=== PATIENT | male | born 1950 | race Caucasian/White ===

== ENCOUNTER → 2017-01-30 | Outpatient (CLI) | payer MEDICARE, OTHER ==
[~2017-01-30] MED LIST: AMLODIPINE-BEN1 EAC5 PO; BENAZEPRIL HCL; BENICAR HCT 401 EAC1 PO; BETAPACE (GENER80 MG PO; LIPITOR40 MG PO; XARELTO20 MG PO; [UNRECOGNIZED DRUG - CODE] PO; [UNRECOGNIZED DRUG - OTHER] PO
--- NOTE | ~2017-01-30 | ESTC ---
Cardiac Perfusion Imaging Demographics Patient Name MALU Warner Gender Male Patient Number [id number] Race Visit Number [id number] Ethnicity Corporate ID Room Number Accession Number [id number] Height 73 inches Date of 1950 Weight 237 pounds Olive VASQUEZ Interpreting Laney Arreaga Date of study 01/30/2017 Physician Supervising /JAGP Andressa Negron NM Technologist Leti Schaefer MD Ordering Physician Stress missile technician Stress ECG Reading Andressa Ngeron Nurse Corey Sharif RN Physician Olvie VASQUEZ The procedure was explained in detail to the patient. Risks, complications and alternative treatments were reviewed. Written consent was obtained. Medications Reviewed with Patient prior to Procedure. Procedure Admit Source:Other. Procedure Type: Nuclear Stress Test:Pharmacological, Lexiscan, Cardiolite Stress Test Procedure Start time: 01/30/2017 00:00 End time: 01/30/2017 08:20 Indications: Shortness of breath. Risk Factors The patient risk factors include:former tobacco use. Conclusions Impression ECG portion of the lexiscan stress test is clinically negative for ischemia by diagnostic criteria. Myocardial perfusion imaging is moderately abnormal. The images reveal a mostly fixed defect in the entire inferior wall basal lateral consistent with infarct . Overall left ventricular systolic function was normal. Calculated LVEF is 65% and TID ratio is 1.11. This is a intermediate risk stress test. There are no previous studies for comparison . Stress Protocols Resting ECG A fib, rare PVCs Pre-stress physical exam: Patient assessed by Dr Crisostomo prior to testing. Stress Protocol:Pharmacologic Predicted HR: 152 bpm ECG Findings No ECG changes suggestive of ischemia. Arrhythmias No new rhythm abnormality. Symptoms Headache. Chest tightness. Shortness of breath. Stress Interpretation Appropriate hemodynamic response to Lexiscan. No significant ST-T wave changes with Lexiscan. ECG portion is negative for ischemia by diagnostic criteria. Imaging Results Summed scores - Summed stress score: 10 - Summed rest score: 9 - Summed difference score: 1 Stress ejection Ejection fraction:64 % EDV :106 ml ESV :38 ml Stroke volume :68 ml LV mass :131 gr Imaging Protocols Rest Stress Isotope:Tc99m Sestamibi IV Isotope: Tc99m Sestamibi IV Isotope dose:14.8 mCi Isotope dose:44.2 mCi Date:01/30/2017 07:17 Date:01/30/2017 08:47 Technique: SPECT Technique: Gated Supine SPECT Supine Scan Time:45-60 minutes post Scan Time:45-60 minutes post injection injection Procedure Medications - Regadenoson (Lexiscan) 0.4 mg IV over 10-15 sec. I.V. 0.4 mg. Medications administered per verbal order and read back to physician prior to administration. Medical History Admission Data Admission date: 01/30/2017 Admission Time: 06:58 Hospital Status: Outpatient. Signatures dtt: LONA BEAULIEU dtd: 01/30/17 [facility] Physician Self Edit
== END | disposition disaster alternative care site (69) ==
LOC: GRAD 06:58
DX: I48.91 Unspecified atrial fibrillation (principal); R06.02 Shortness of breath; Z87.891 Personal history of nicotine dependence
CPT/HCPCS: A9500; J2785

== ENCOUNTER → 2017-02-07 | Day surgery (SDC) | payer MEDICARE, OTHER ==
[~2017-02-07] VITALS: Ht 185.4 cm; Wt 101.7 kg
--- NOTE | ~2017-02-07 | OR ---
PATIENT'S NAME: LORENA TORIBIO [facility] AGE: 66 Y [address] ROOM: [place] [id number] LOCATION: [facility] [place] ADMIT DATE: 02/07/2017 OR/Procedure Report DISCHARGE DATE: FAMILY PHYSICIAN: Rashid Marte MD ATTENDING PHYSICIAN: Rebecca Crisostomo SURGEON: Rebecca Crisostomo MD SECOND LANGUAGE TUTOR: DATE OF PROCEDURE: 02/07/2017 PROCEDURE PERFORMED: Synchronized cardioversion. INDICATION: The patient is 66-year-old gentleman with hypertension, newly discovered atrial fibrillation. He has been placed on anticoagulation with rivaroxaban. DESCRIPTION OF PROCEDURE: He was brought in to the procedural unit in fasting state. Transesophageal echocardiogram showed there were no masses in the atria compatible with thrombus. The patient was deeply sedated with propofol. I then delivered a single synchronized biphasic 200 joule shock with patches in the anterior/posterior configuration. The patient promptly converted from atrial fibrillation to sinus rhythm. CONCLUSION: Successful cardioversion from atrial fibrillation to sinus rhythm. REBECCA CRISOSTOMO MD PE/modl /[id number] d: 02/07/17 1151 t: 02/12/17 0820, OPERATIVE SUMMARY
--- NOTE | ~2017-02-07 | ECHO ---
Transesophageal Echocardiography Report ([facility]ELSE[facility]) Demographics Patient Name LORENA TORIBIO Date of Study 02/07/2017 Patient Number [id number] Visit Number [id number] Date of 1950 Room Number Gender Male Number Age 66 year(s) Referring Estuardo Mike Donations Attendant Griffin Delaney RVT, Physician RD Physician Interpreting Andressa Negron Plasterer Journeyman Physician A Supervising Ordering Andressa Negron MD/MLP Physician A Nurse Stress Supervisor Roving Conclusions Summary The left ventricle is normal in size . Estimated EF: 60-65 %. The left atrium is mildly dilated. Proceed with cardioversion. No left atrial masses including the appendage. Procedure Type of Study [facility]ELSE[facility] procedure:Color Doppler. Procedure Date Date: 02/07/2017 Start: 09:30 AM Study Location: Inpatient Portable Technical Quality: Adequate visualization Indications:Atrial fibrillation. Appropriate Use Criteria: 8 Patient Status: Routine Rhythm: Atrial fibrillation HR: 93 bpm BP: 124/67 mmHg KELSEY Performed By: the attending and the automatic clipper and stripper Findings Left Ventricle The left ventricle is normal in size . Estimated EF: 60-65 %. Right Ventricle Normal right ventricular size and function. Left Atrium The left atrium is mildly dilated. No left atrial masses including the appendage. Right Atrium The right atrium is not dilated. No evidence of patent foramen ovale by Doppler. Mitral Valve Trivial mitral regurgitation. Aortic Valve Normal trileaflet aortic valve. Tricuspid Valve Trivial tricuspid regurgitation . Pulmonic Valve Trivial pulmonic valve regurgitation. Pericardial Effusion No pericardial effusion. Signature dtt: Rebecca Crisostomo dtd: 02/07/17 0930 Physician Self Edit
== END ==
LOC: GOPD 02-01 → GSDC 07:51 → GOPD 08:00 → EDSTATUS 08:00
DX: I48.91 Unspecified atrial fibrillation (principal); I10 Essential (primary) hypertension; M19.90 Unspecified osteoarthritis, unspecified site; F17.210 Nicotine dependence, cigarettes, uncomplicated; E78.5 Hyperlipidemia, unspecified; Z98.890 Other specified postprocedural states; Z79.01 Long term (current) use of anticoagulants; Z79.899 Other long term (current) drug therapy
CPT/HCPCS: J2001; J7030

== ENCOUNTER 2017-02-12 06:58 | Inpatient (IN) | payer MEDICARE, OTHER ==
[~2017-02-12] VITALS: Ht 185.4 cm; Wt 102.3 kg
--- NOTE | ~2017-02-12 | CATH ---
Cardiac Diagnostic Report Demographics Patient Name MALU Warner Gender Male Date of 1950 Age 66 year(s) Patient Number [id number] Date of Study 02/12/2017 Visit Number [id number] Room Number [id number] [place] [id number] Ht 185.42 cm Wt 100.6 kg Referring sEtuardo Mike Primary Physician Physician Performing Efstratiou Secondary Physician Physician Jamil Schaefer MD Diagnostic Efstratiou Assisting Physician Physician Jamil Schaefer MD Interventional Physician Mini Baccarat Dealer Physician Findings and Conclusions Diagnostic Findings and Conclusion Diffuse mild to moderate coronary artery disease. 25% LAD - 60% Diag - 25% RCA - 30% Circ Diagnostic Recommendations Medical treatment. Start sotalol for recurrent atrial fibrillation. Procedure Description The patient was brought to the diagnostic cardiac catheterization-EP laboratory in the fasting, non-sedated state. Informed consent was obtained in the written and verbal form after the risks and benefits were explained. The patient had no further questions and agreed to proceed. The planned puncture-incision site(s) were shaved and prepped with ChloraPrep and draped in the usual sterile manner. Conscious sedation pain control medications were delivered by a registered nurse under physician guidance. Surface ECG rhythm, blood pressure measurement, and pulse oximetry were monitored throughout the procedure. Arterial access. The access site was infiltrated with lidocaine. The vessel was entered with the Seldinger technique. A sheath was advanced into the vessel and used for catheter placement. Selective left coronary angiography. A catheter was advanced into the left coronary vessel ostium under Fluoroscopic guidance. Contrast was injected by hand. Images were obtained in multiple projections. Selective right coronary angiography. A catheter was advanced into the right coronary vessel ostium under fluoroscopic guidance. Contrast was injected by hand. Images were obtained in multiple projections. Left heart catheterization with ventriculography. A catheter was advanced across the aortic valve to the left ventricle under fluoroscopic guidance. Resting hemodynamics were obtained. With the catheter at the left ventricular apex, contrast was injected. Images were obtained in IRENE projections. Post-ventriculography LV pressure was obtained. The catheter was gradually withdrawn into the aorta with continuous pressure recording. Arterial artery hemostasis was achieved. The patient was transferred to a regular nursing floor via cart accompanied by a nurse. The patient left the laboratory in stable condition. Diagnostic Cath Status: Urgent Procedure Procedure Type Diagnostic procedure:Ventriculogram:, Left, Angiography:, Coronary Angios w/LHC Indications: Abnormal Stress Test and Atrial fibrillation. The procedure was explained in detail to the patient. Risks, complications and alternative treatments were reviewed. Written consent was obtained. Medications Reviewed with Patient prior to Procedure. Angiographic Findings Dominance: Right Cardiac Arteries and Lesion Findings LMCA: Short, patent. LAD: Lesion on Prox LAD: Proximal subsection.25% stenosis . Lesion on 1st Diag: Ostial.60% stenosis . LCx: OM 1 small. OM 2 large, patent. Lesion on Mid CX: Mid subsection.30% stenosis . Lesion on 1st Ob Stephanie: Mid subsection.80% stenosis . RCA: Lesion on Mid RCA: Mid subsection.25% stenosis . Lesion on 1st RPL: Proximal subsection.20% stenosis . Lesion on R PDA: Proximal subsection.20% stenosis . Coronary Tree Procedure Data Procedure Date Date: 02/12/2017Start: 09:29 AMEnd: 09:59 AM Entry Locations - Retrograde Percutaneous access was performed through the Right Radial artery (Primary location). A 6 Fr sheath was inserted. Hemostasis was successfully obtained using Mechanical Compression. Closure Comments: 14 ml of air in R. band by Roxanna Wagoner. . Procedure Medications Order and Administration + + +-------+---------+ !Time !Medication !Dosage !Route ! + + +-------+---------+ !02/12/2017 !Versed !1 mg !I.V. ! !09:28 AM ! ! ! ! + + +-------+---------+ !02/12/2017 !Fentanyl !50 mcg !I.V. ! !09:29 AM ! ! ! ! + + +-------+---------+ !02/12/2017 !PAE Radial Cocktail: Heparin 5000 units, ! !I.A. ! !09:32 AM !Nitroglycerin 200mcg, Verapamil 3 mg ! ! ! ! !(ACC_3) ! ! ! + + +-------+---------+ !02/12/2017 !0.9% NaCl !300 ml !I.V. ! !09:35 AM ! ! !bolus ! + + +-------+---------+ !02/12/2017 !Herbert-Synephrine (Phenylephrine) !100 mcg!I.V. ! !09:38 AM ! ! ! ! + + +-------+---------+ Devices Used - A6 Fr. BS JR 4 Diag. Catheterwas used for:Right coronary angiography. - A6 Fr. BS JL 3.5 Diag. Catheterwas used for:Left coronary angiography. - A6 Fr. BS Angled Pigtail Diag. Catheterwas used for:Left ventriculography. Contrast Material - Isovue 50794 ml Fluoroscopy Time: Diagnostic: 3:00 minutes. Total: 3:00 minutes. Fluoroscopy Dose: Diagnostic: 814 mGy. Total: 814 mGy. Estimated Blood Loss: 10 ml. Medical History Performed Procedures and Imaging Results - Echocardiographywas performed on 02/07/2017.(65% ). - Stress testing with SPECT MPIwas performed on 02/07/2017. Results were: Positive. Risk/Extent of ischemia was: Intermediate risk. Allergies - No known allergies. Risk Factors The patient risk factors include:treated hypercholesterolemia, treated hypertension, last creatinine: 1.1 mg/dl, creatinine clearance: 91.45 ml/min and Current/Recent(w/in 1 year) tobacco use. Admission Data Admission Date: 02/12/2017 Admission Time: 06:58 AM Insurance Payors: Medicare. Admission Medications + +------+------+ + + + + !Medication !Dosage!Times !Last !Last !Administered !Comments ! ! ! !Per !Delivery !Delivery ! ! ! ! ! !Day !Date !Time ! ! ! + +------+------+ + + + + !Aspirin ! ! ! ! ! ! ! !(any) ! ! ! ! ! ! ! + +------+------+ + + + + !DEEPIKA ! ! ! ! ! ! ! !Inhibitor ! ! ! ! ! ! ! !(any) ! ! ! ! ! ! ! + +------+------+ + + + + !Statin (any)! ! ! ! ! ! ! + +------+------+ + + + + !ARB (any) ! ! ! ! ! ! ! + +------+------+ + + + + Clinical Evaluation Leading to Procedure - The patient's CAD presentation was assessed as: Unstable angina. - The patient's anginal syndrome during the past two weeks was assessed as: Class II according to the [place] Cardiovascular [employer] Classification System (CCS). Anti-anginal medications were prescribed during the past two weeks. The medication is: Ca channel Blockers. VA Ventriculography Findings Normal. LVEF 70%. No regional wall motion abnormalities. LV function assessed as:Normal. Ejection Fraction - 02/12/2017 - Method: LV gram. EF%: 70. LVA Segment Contractility 1 - Normal 3 - Mild 5 - Severe 7 - Dyskinesis hypokinesis hypokinesis 2 - 4 - Moderate 6 - Akinesis 8 - Aneurysm Hypokinesis hypokinesis Snapshots Hemodynamics Condition: Rest O2 Consumption: Estimated: 274.00Heart Rate: 85 bpm Pressures (mmHg) +-----+ + !Site !Pressure ! +-----+ + !LV !112/2 ,4 ! +-----+ + !LV !106/4 ,5 ! +-----+ + !AO !96/62 (79) ! +-----+ + !LV !118/4 ,4 ! +-----+ + !AO !95/64 (76) ! +-----+ + !AO !65/49 (57) ! +-----+ + !AO !98/75 (85) ! +-----+ + !LV !113/7 ,8 ! +-----+ + !LV !116/0 ,8 ! +-----+ + Valve Gradients and Areas + +---------+---------+---------+ +---------+ + !Valve !Peak !Mean !Area !Index !Flow !Source ! + +---------+---------+---------+ +---------+ + !Aortic !12 !8 ! ! ! ! ! + +---------+---------+---------+ +---------+ + !Aortic !12 !8 ! ! ! ! ! + +---------+---------+---------+ +---------+ + Shunts Oxygen Values O2 Capacity 224.4 O2 Consumption 274 Discharge Data Discharge Date: 02/14/2017 Hospital Status: Outpatient Signatures dtt: Rebecca Crisostomo dtd: 02/12/17 0929 Physician Self Edit
--- NOTE | ~2017-02-12 | OR ---
PATIENT'S NAME: LORENA TORIBIO [facility] AGE: 66 Y [address] ROOM: [place] [address] LOCATION: [facility] ADMIT DATE: 02/12/2017 OR/Procedure Report DISCHARGE DATE: 02/14/2017 FAMILY PHYSICIAN: Rashid Marte MD ATTENDING PHYSICIAN: Rebecca Crisostomo SURGEON: Rebecca Crisostomo MD SHAKE LOADER: DATE OF PROCEDURE: 02/14/2017 PROCEDURE PERFORMED: Synchronized cardioversion. INDICATION: The patient was diagnosed with new-onset atrial fibrillation. He was initially cardioverted to sinus rhythm on no antiarrhythmic, but during followup, he was found to have relapsed. The patient had coronary angiography following an abnormal stress test that showed moderate diffuse coronary artery disease. He was then started on sotalol and when he failed to convert spontaneously, he was again brought to the procedural unit. DESCRIPTION OF PROCEDURE: Anesthesia provided propofol, and when deeply asleep, I delivered a single synchronized biphasic 200-joule shock with patches in the anterior/posterior configuration. The patient promptly converted from atrial fibrillation to sinus bradycardia. CONCLUSION: Successful cardioversion from atrial fibrillation to sinus bradycardia. REBECCA CRISOSTOMO MD PE/modl /[id number] d: 02/14/17 2308 t: 02/18/17 0913, OPERATIVE SUMMARY
[~2017-02-12 06:58] MED LIST changes: -BETAPACE (GENER80 MG PO
[2017-02-12 07:36] LABS: BASOPHIL # 0.1 K/uL (0.0-0.2); BASOPHIL % 0.7 %; EOSINOPHIL # 0.1 K/uL (0.0-0.5); EOSINOPHIL % 1.4 %; HEMATOCRIT 46.9 % (37.0-53.0); HEMOGLOBIN 16.5 g/dL (11.0-16.0); IMMATURE GRANULOCYTE % 0.2 %; LYMPHOCYTE # 1.8 K/uL (0.8-4.0); LYMPHOCYTE % 19.3 %; MCH 32.5 pg (27.0-34.0); MCHC 35.2 gm/dL (32.0-36.5); MCV 92.5 fl (83.0-98.0); MONOCYTE % 11.3 %; MPV 10.2 fl (9.4-12.4); NEUTROPHIL # (ANC) 6.2 K/uL (1.4-9.0); NEUTROPHIL % 67.1 %; NRBC % 0 /100WBC (0-0.00); PLATELET COUNT 268 K/uL (150-450); RBC 5.07 M/uL (3.50-5.50); RDW-CV 11.9 % (11.9-14.6); WBC 9.2 K/uL (4.0-11.0)
[2017-02-12 07:45] LABS: PROTIME 10.5 SECONDS (9.8-11.4); PTT 29 SECONDS (25-32)
[2017-02-12 07:53] LABS: ALBUMIN 3.8 gm/dL (3.5-5.0); ALK PHOS 71 IU/L (33-138); ALT 27 IU/L (12-78); ANION GAP 12.3 (10.0-19.0); AST 28 IU/L (10-40); BLOOD UREA NITROGEN 24 mg/dL (6-24); CALCIUM 9.2 mg/dL (8.5-10.5); CHLORIDE 105 mMol/L (96-110); CO2 26 mMol/L (22-32); CREATININE 1.1 mg/dL (0.6-1.3); POTASSIUM 4.3 mMol/L (3.7-5.1); SODIUM 139 mMol/L (135-145); TOTAL BILIRUBIN 0.7 mg/dL (0.0-1.5)
[2017-02-12 07:54] LABS: ESTIMATED GFR (MDRD EQUATION) > 60
--- NOTE | 2017-02-12 15:46 | NUR ---
PATIENT NEW ADMIT TO FLOOR TO 1224. PATIENT HAS NEGATIVE HEART CATH. R-BAND REMOVED AND R) RADIAL SITE IS COVERED WITH GAUZE, TEGADERM AND COBAND. CSM WITHIN NORMAL LIMITS. VOIDS FREELY. NO C/O OF PAIN. A&O. PLEASANT AND COOPERATIVE WITH CARES. PATIENT IS ON XARELTO AND IS STARTED ON BETAPACE TO CONTROL RATES. IN A-FIB. UP AD PATY. BM THIS AM. APPETITE IS GOOD. PLEASANT AND COOPERATIVE WITH CARES.
--- NOTE | 2017-02-13 04:44 | NUR ---
Significant Event: A/0X3. UP AB PATY IN ROOM. TURNS SELF. AFEBRILE. VSS ON RA. STILL IN A.FIB HRS 70-90'S. DENIES PAIN. IV TO L) HAND SL. R) RADIAL SOFT. NO S/S OF HEMATOMA OR OOZING. SLIGHT BRUISING. CSM WNL. DRESSING C/D/I. VOIDED 2,550 MLS. NO BM THIS SHIFT. Follow up: CONTINUE WITH PLAN OF CARE.
--- NOTE | 2017-02-13 15:31 | NUR ---
Significant Event:VSS.RA.MILD SOB WHEN WALKING.INDEPENDENT. AMBULATED IN HALLS. PLANS TO BE DISCHARGED AFTER 5 DOSES OF SOTALOL, AND POSSIBLE CARDIOVERSION. Follow up:WILL CONTINUE TO MONITOR PER PLAN OF CARE.
--- NOTE | 2017-02-14 03:38 | NUR ---
Significant Event: A/0X3. UP AB PATY IN ROOM. TURNS SELF. AFEBRILE. VSS ON RA. STILL IN AFIB HR 60-80S. POSSIBLY CARDIOVERT TODAY? DENIES PAIN. IV TO L) HAND SL. VOIDS FINE. NO BM THIS SHIFT. Follow up: CONTINUE WITH PLAN OF CARE.
[2017-02-14 09:00] LABS: BASOPHIL % 0.4 %; EOSINOPHIL # 0.2 K/uL (0.0-0.5); EOSINOPHIL % 1.6 %; HEMATOCRIT 47.2 % (37.0-53.0); HEMOGLOBIN 16.8 g/dL (11.0-16.0); IMMATURE GRANULOCYTE % 0.2 %; LYMPHOCYTE # 2.2 K/uL (0.8-4.0); LYMPHOCYTE % 20.1 %; MCH 32.4 pg (27.0-34.0); MCHC 35.6 gm/dL (32.0-36.5); MCV 90.9 fl (83.0-98.0); MONOCYTE # 1.1 K/uL (0.0-1.0); MONOCYTE % 10.4 %; MPV 10.4 fl (9.4-12.4); NEUTROPHIL # (ANC) 7.2 K/uL (1.4-9.0); NEUTROPHIL % 67.3 %; NRBC % 0 /100WBC (0-0.00); PLATELET COUNT 269 K/uL (150-450); RBC 5.19 M/uL (3.50-5.50); RDW-CV 11.8 % (11.9-14.6); WBC 10.8 K/uL (4.0-11.0)
[2017-02-14 09:16] LABS: ANION GAP 13.3 (10.0-19.0); CALCIUM 9.2 mg/dL (8.5-10.5); CREATININE 0.9 mg/dL (0.6-1.3); POTASSIUM 4.3 mMol/L (3.7-5.1)
--- NOTE | 2017-02-14 17:32 | NUR ---
Significant Event:VSS AFEBRILE. HR'S 49 TO 70'S. BP'S 100'S TO 110'S. ON RA IN THE 90'S. DENIES PAIN. CARDIOVERTED TODAY HR'S 49 TO 50'S. HOME TODAY? Follow up:
[2017-02-14] MEDS ORDERED: BETAPACE (GENER80 MG PO (18:19)
--- NOTE | 2017-02-14 19:45 | NUR ---
PATIENT DISCHARGED TO HOME AT 191. IV DISCONTINUED AND CATHETER INTACT. VSS. PATIENT EDUCATION COMPLETED WHICH INCLUDING SCHEDULING FOLLOW UP APPOINTMENTS WITH JAYANT LACY AND DR JAMES, ACTIVITY WITH RIGHT WRIST PRECAUTIONS, CARDIAC DIET, CHANGE IN OLD MEDICAITONS, AND INFORMATION ABOUT NEW MEDS. FAMILY APART OF DISCHARGE PLANNING AND PATIENT ACCOMPANIED DOWNSTAIR WITH NURSE VIA WHEELCHAIR.
== END 2017-02-14 20:08 | disposition disaster alternative care site (69) | DRG 287 ==
LOC: GPCU 06:58 → GCAT 06:58 → GPOC 07:00 → GPCU 10:49 → GCAT 02-13 10:30 → GPCU 02-14 20:08 → GCAT 02-14 20:08
PROVIDERS: Nurse Practitioner; ADMIT Internal Medicine Cardiovascular Disease
PROC: B2111ZZ Fluoroscopy of Multiple Coronary Arteries using Low Osmolar Contrast (ICD-10-PCS; principal; 2017-02-12)
PROC: 4A023N7 Measurement of Cardiac Sampling and Pressure, Left Heart, Percutaneous Approach (ICD-10-PCS; principal; 2017-02-12)
PROC: B2151ZZ Fluoroscopy of Left Heart using Low Osmolar Contrast (ICD-10-PCS; principal; 2017-02-12)
PROC: 5A2204Z Restoration of Cardiac Rhythm, Single (ICD-10-PCS; 2017-02-14)
DX: I48.1 Persistent atrial fibrillation (principal); I10 Essential (primary) hypertension; I25.10 Atherosclerotic heart disease of native coronary artery without angina pectoris; Z79.01 Long term (current) use of anticoagulants
CPT/HCPCS: C1894; J1644; J2001; J2250; J3010; J7030